=== PATIENT | female | born 1985 | race Asian ===

== ENCOUNTER 2018-01-06 16:28 | Inpatient (IN) | payer OTHER, MEDICAID ==
[~2018-01-06] VITALS: Ht 172.7 cm; Wt 51.7 kg
[2018-01-06 16:35] VITALS: BP 112/53
--- NOTE | 2018-01-06 16:35 | NUR ---
PT BROUGHT IN BY STAFF EDWARD SMITH FROM [facility] IN [place]. PT WAS BROUGHT IN FOR LETHARGY AND WEAKNESS. PT WAS PREVIOUSLY AT [facility] FOR HYPONATREMIA AND GT LEAKAGE. PT WAS PUT ON KEFLEX X 5 DAYS.( WHICH HAS BEEN COMPLETED) AND PT HAS BEEN HAVING LOOSE WATER AND FOUL SMELLING STOOLS. PT WAS FEBRILE AT 100.2 @1400 TODAY. AND WAS GIVEN IBUPROFEN AND TEMP DECREASED TO 98.0. PT IS ALERT BUT LETHARGIC, NON VERBAL, NON AMBULATORY, WHICH IS BASELINE PER CAREGIVER AT BEDSIDE. PT IS TACHYCARDIC 150's, SKIN IS WARM, DRY, PALE IN COLOR. RESP EVEN AND UNLABORED. PT HAS GTUBE ON THE LEFT SIDE OF PT ABDOMEN WHICH ACCORDING TO STAFF IS BEING USED FOR FEEDINGS. SHE ALSO HAS AN OLD JTUB SITE ON THE RIGHT SIDE OF ABDOMEN WHICH IS NOT BEING USED AT THIS TIME.(STAFF INFORMED THAT THE SITE IS NOT WORKING ). PT DID HAVE A LOOSE STOOL AT BEDSIDE AND WAS COLLECTED FOR A SAMPLE THE STOOL WAS WATERY WITH WHAT LOOKED LIKE MUCUS AND WITH MALODOUS ODOR.
--- NOTE | 2018-01-06 17:42 | NUR ---
G DRAWN. COPY OF RESULTS GIVEN TO DR. BELL. PLACED PT ON 2L NC PER PHYSICIAN.
[2018-01-06 18:05] LABS: HEMATOCRIT 41.3 % (36-48); HEMOGLOBIN 13.1 g/dL (12.0-16.0); MEAN CORPUSCULAR HEMOGLOBIN 30 pg (27-31); MEAN CORPUSCULAR HGB CONC 32 g/dL (33-37); PLATELET COUNT (AUTO) 426 K/uL (140-450); RED CELL DISTRIBUTION WIDTH 13.8 % (11.6-13.7); WHITE BLOOD COUNT (AUTO) 13.7 K/uL (4.8-10.8)
[2018-01-06] MEDS ORDERED: NACL 0.9% 1,000 ML IV ONE (18:05)
[2018-01-06 18:06] LABS: EOSINOPHILS % (MANUAL) 1 % (0-4); LYMPHOCYTES % (MANUAL) 17 % (20-46)
[2018-01-06] MEDS: NACL 0.9% 1,000 ML IV SCH ×2 (18:09→19:19)
[2018-01-06 18:22] LABS: ALBUMIN 3.5 g/dL (3.4-5.0); ANION GAP 23.8 (8-16); CREATININE 2.6 mg/dL (0.6-1.3); TOTAL BILIRUBIN 0.5 mg/dL (0.0-1.0)
[2018-01-06 18:27] LABS: POTASSIUM 4.8 mmol/L (3.5-5.1)
[2018-01-06 18:41] LABS: APPEARANCE,URINE SL CLOUDY (CLEAR); BILIRUBIN,URINE NEGATIVE (NEGATIVE); BLOOD, URINE NEGATIVE (NEGATIVE); COLOR,URINE YELLOW (YELLOW); LEUKOCYTE ESTERASE ,URINE NEGATIVE (NEGATIVE); NITRITE, URINE NEGATIVE (NEGATIVE); UGLUCOSE NEGATIVE (NEGATIVE)
[2018-01-06] MEDS ORDERED: PIPERACILLIN/TAZOBACTAM 3.375 GM in DEXTROSE 5% 50 ML IV ONE (18:45)
[2018-01-06 18:51] LABS: COARSE GRANULAR CASTS,URINE 0-10 /LPF (None Seen)
[2018-01-06 18:52] LABS: YEAST,URINE Few /HPF (None Seen)
[2018-01-06 18:53] LABS: CALCIUM OXALATE CRYSTALS,UR 0-10 /HPF (None Seen); RBC,URINE 0-5 (RARE) /HPF (0-5); WBC,URINE 0-5 (RARE) /HPF (0-5)
--- NOTE | 2018-01-06 19:00 | NUR ---
CRITICAL LACTIC ACID 4.5MD AWARE
[2018-01-06] MEDS ORDERED: PIPERACILLIN/TAZOBACTAM 3.375 GM VIAL IV ONE (19:02)
[2018-01-06 19:12] LABS: PROTHROMBIN TIME 11.2 secs (10.8-13.4)
--- NOTE | 2018-01-06 19:20 | NUR ---
REPORT GIVEN TO JYOTHI GARCIA RN
[2018-01-06 19:23] LABS: CKMB RELATIVE INDEX 0.1 (0.0-2.5); CREATINE KINASE MB 0.5 ng/mL (0-3.6)
[2018-01-06 20:00] VITALS: BP 121/75
--- NOTE | 2018-01-06 20:00 | NUR ---
Report given to and care transfered to Jero RN room ICU3. Transported via gurney with VSS for transfer.
--- NOTE | 2018-01-06 20:00 | NUR ---
PT TRANSFERRED FROM ER VIA [facility] WITH 2 ASSISTANTS. RECEIVED BEDSIDE REPORT FROM ER NURSE RN. PT'S CHIEF COMPLAIN GENERALIZED WEAKNESS WITH DIARRHEA X5 DAYS. DX WITH SEPTIC SHOCK. PT IS AWAKE, NON VERBAL, UNABLE TO MAKE NEEDS KNOWN, UNABLE TO FOLLOW COMMANDS. O2 2L/M VIA NC, 100% O2 SAT. ST ON THE MANAGER FLIGHT OPERATIONS. BILATERAL LUNG SOUND CLEAR, S1 AND S2 HEARD. G-TUBE TO LEFT UPPER ABDOMEN, J-TUBE ON RIGHT ABDOMEN, REDNESS TO TUBE SITE NOTED. PT HAD BOWEL MOVEMENT, LIGHT BROWN COLORED WATERY BM NOTED. REDNESS ON THE BUTTOCKS AREA NOTED. PERIPHERAL LINE TO RIGHT AC 22G, LEFT HAND 24G, INTACT AND PATENT NOTED. BED IN LOW POSITION, HOB ELEVATED 30 DEGREE. CALL LIGHT WITHIN REACH. WILL CONTINUE TO MONITOR.
[2018-01-06 22:00] VITALS: BP 117/67
--- NOTE | 2018-01-06 22:00 | NUR ---
2ND BOLUS 1000ML OF NS DONE. NO ACUTE DISTRESS NOTED. FLACC 0. ST ON THE MONITOR. HEART RATE ABOVE 100 NOTED. WILL CONTINUE TO MONITOR.
[2018-01-06] MEDS ORDERED: ONDANSETRON 4 MG/2 ML VIAL IVP PRN (22:50)
[2018-01-06] MEDS ORDERED: HYDROcodone/APAP 5/325 MG 1 TAB TAB GT PRN (22:50)
[2018-01-06] MEDS ORDERED: MORPHINE SULFATE 2 MG/ML SYR IVP PRN (22:50)
[2018-01-06] MEDS ORDERED: ACETAMINOPHEN 325 MG TAB GT PRN (22:50)
[2018-01-06] MEDS ORDERED: DEXT 5% /NACL 0.9% 1,000 ML IV SCH (22:50)
[2018-01-06] MEDS ORDERED: LORazepam 2 MG/ML VIAL IVP PRN (22:50)
[2018-01-07] VITALS (12 sets, daily range): BP systolic 91–130; BP diastolic 51–74
--- NOTE | 2018-01-07 | NUR ---
PT AWAKE, NON VERBAL, UNABLE TO MAKE NEEDS KNOWN, UNABLE TO FOLLOW COMMANDS. NO ACUTE DISTRESS NOTED. ST ON THE MONITOR. FLACC 0. VSS. CONTINUE TO MONITOR.
--- NOTE | 2018-01-07 02:00 | NUR ---
PT OPENS HER EYES, NON VERBAL, UNABLE TO MAKE NEEDS KNOWN, UNABLE TO FOLLOW COMMANDS. NO ACUTE DISTRESS NOTED. FLACC 0. ST ON THE MONITOR. PT HAD SMALL LIGHT BROWN COLORED WATERY BM NOTED. HOB ELEVATED, BED IN LOW POSITION. CALL LIGHT WITHIN REACH. WILL CONTINUE TO MONITOR.
[2018-01-07 02:19] LABS: CREATINE KINASE MB 1.1 ng/mL (0-3.6)
--- NOTE | 2018-01-07 03:30 | NUR ---
PT IS AWAKE, NON VERBAL, UNABLE TO FOLLOW COMMANDS. NO ACUTE DISTRESS NOTED. O2 SAT 100% ON ROOM AIR. ST ON THE MONITOR. WILL CONTINUE TO MONITOR.
[2018-01-07] MEDS ORDERED: PIPERACILLIN/TAZOBACTAM 2.25 GM VIAL IV ONE (04:51)
[2018-01-07] MEDS ORDERED: PIPERACILLIN/TAZOBACTAM 3.375 GM in DEXTROSE 5% 50 ML IV SCH (05:00)
[2018-01-07] MEDS: PIPER/TAZO 2.25GM/D5W PREMIX 50 ML IV SCH ×3 (05:15→21:05)
--- NOTE | 2018-01-07 05:15 | NUR ---
ADMINISTERED SCHEDULED ABX ORDERED, TOLERATED WELL. NO ACUTE DISTRESS NOTED AT THIS TIME. ST ON THE MONITOR. FLACC 0. WILL CONTINUE TO MONITOR.
[2018-01-07 05:19] LABS: BASOPHILS # (AUTO) 0.1 K/uL (0.00-0.22); EOSINOPHILS # (AUTO) 0.2 K/uL (0-0.4); EOSINOPHILS % (AUTO) 1.6 % (0.0-4.0); HEMATOCRIT 31.5 % (36-48); HEMOGLOBIN 10.2 g/dL (12.0-16.0); LYMPHOCYTES # (AUTO) 2.7 K/uL (2.5-16.5); LYMPHOCYTES % (AUTO) 22.8 % (20.5-51.1); MEAN CORPUSCULAR HEMOGLOBIN 31 pg (27-31); MEAN CORPUSCULAR HGB CONC 33 g/dL (33-37); MEAN CORPUSCULAR VOLUME 94.9 fL (80-94); MONOCYTES % (AUTO) 8.6 % (1.7-9.3); NEUTROPHILS # (AUTO) 7.9 K/uL (1.8-7.7); PLATELET COUNT (AUTO) 326 K/uL (140-450); RED BLOOD CELL COUNT(AUTO) 3.32 MIL/uL (4.20-5.40); RED CELL DISTRIBUTION WIDTH 14.1 % (11.6-13.7)
--- NOTE | 2018-01-07 06:45 | NUR ---
AT BEDSIDE AT THIS TIME TO CHECK THE PT. WILL FOLLOW THE ORDER.
[2018-01-07] MEDS ORDERED: NACL 0.45% 1,000 ML IV SCH (07:00)
--- NOTE | 2018-01-07 07:20 | NUR ---
BEDSIDE REPORT GIVEN TO JERI FOR CONTINUITY OF CARE.
--- NOTE | 2018-01-07 07:20 | NUR ---
RECEIVED BEDSIDE REPORT FROM NIGHT NURSE. PT IS AWAKE, NONVERBAL, UNABLE TO FOLLOW COMMANDS AND UNABLE TO MAKE NEEDS KNOWN. FLACC 0, AFEBRILE. SINUS TACHY ON MONITOR. S1 AND S2 HEARD. ON O2 AT 2LPM VIA NC. BILATERAL LUNGS SOUND CLEAR, BREATHING EVEN AND UNLABORED. PERIPHERAL IV TO RIGHT AC G 22 AND LEFT HAND 24G ASYMPTOMATIC, INTACT AND PATENT. G-TUBE TO LEFT UPPER QUADRANT AND J-TUBE TO RIGHT ABDOMEN NOTED. REDNESS AND MINIMAL AMOUNT DRAINAGE AT J-TUBE SITE NOTED. JOHNSON CATH IN PLACE DRAINING YELLOW URINE TO GRAVITY DRAINAGE BAG. SKIN IS DRY AND WARM TO TOUCH. HOB ELEVATED 30 DEGREES, BED IN LOWEST POSITION AND CALL LIGHT WITHIN REACH. WILL CONTINUE TO MONITOR.
[2018-01-07 07:37] LABS: ALBUMIN 2.6 g/dL (3.4-5.0); ANION GAP 19.2 (8-16); CARBON DIOXIDE 15.5 mmol/L (21-32); CREATININE 1.3 mg/dL (0.6-1.3); MAGNESIUM 2.4 mg/dL (1.8-2.4); PHOSPHORUS 3.5 mg/dL (2.5-4.9); TOTAL BILIRUBIN 0.3 mg/dL (0.0-1.0)
[2018-01-07 08:19] LABS: POTASSIUM 2.7 mmol/L (3.5-5.1)
--- NOTE | 2018-01-07 08:20 | NUR ---
PAGED DR. EVIN Cifuentes FOR CRITICAL LAB RESULTS. AWAITING CALL BACK.
--- NOTE | 2018-01-07 08:28 | NUR ---
RECEIVED A RETURNED CALL FROM DR. EVIN Cifuentes ORDERS RECEIVED.
[2018-01-07] MEDS ORDERED: INSULIN LISPRO SLIDING SCALE 100 UNITS/ML VIAL SUBQ PRN (08:30)
[2018-01-07] MEDS ORDERED: KCL 20 MEQ/WATER INJ PREMIX 200 ML IV SCH (08:40)
[2018-01-07] MEDS ORDERED: SODIUM BICARBONATE 8.4% 50 MEQ in NACL 0.45% 1,000 ML IV SCH (09:35)
--- NOTE | 2018-01-07 10:25 | NUR ---
PATIENT HAS BEEN SCREENED AND CATEGORIZED HIGH NUTRITION RISK. PATIENT WILL BE SEEN WITHIN 1-2 DAYS OF ADMISSION. 01/07/18 - 01/08/[address]
--- NOTE | 2018-01-07 10:30 | NUR ---
NO CHANGE OF CONDITION AT THIS TIME. VITAL SIGNS STABLE. AFEBRILE.
[2018-01-07] MEDS: NACL 0.45% 1,000 ML IV SCH ×2 (11:24→21:04)
[2018-01-07 11:28] LABS: CREATINE KINASE MB 4.4 ng/mL (0-3.6)
[2018-01-07] MEDS: BLOOD GLUCOSE MONITORING 1 DEV DEV FS SCH ×3 (11:39→21:04)
--- NOTE | 2018-01-07 12:49 | NUR ---
PT IS SLEEPING COMFORTABLY. NO S/SX OF ACUTE DISTRESS NOTED AT THIS TIME. SAFETY PRECAUTIONS IN PLACE.
[2018-01-07] MEDS ORDERED: PROBIOTIC SCREEN 1 EA MISC MC PRN (15:25)
--- NOTE | 2018-01-07 15:25 | NUR ---
NO CHANGE OF CONDITION AT THIS TIME. CLEANED AND REPOSITIONED PT. TOLERATED WELL. VITAL SIGNS STABLE. SAFETY MEASURES ENSURED. WILL CONTINUE TO MONITOR.
--- NOTE | 2018-01-07 15:39 | NUR ---
01/07/18 RD INITIAL ASSESSMENT COMPLETED PLEASE REFER TO NUTRITION ASSESSMENT UNDER CARE ACTIVITY FOR ESTIMATED NUTRITIONAL NEEDS. 1.RECOMMEND DIABETISOURCE AT 60 ML/HR TOLERATED -THIS WILL PROVIDE PT WITH 1728 KCAL/DAY, 86 GM PROTEIN AND 1148 ML OF FREE WATER, WHICH WILL MEET 100% OF PATIENTS ENERGY AND PROTEIN NEEDS. 2. RD TO FOLLOW-UP 2-3 DAYS, HIGH RISK ORACIO MALDONADO, RD
--- NOTE | 2018-01-07 16:30 | NUR ---
DR. EVIN Cifuentes MADE AWARE OF STOOL FOR C. DIFF RESULT. NO NEW ORDER AT THIS TIME. DR. CLEARY ALSO MADE AWARE OF FNS RECOMMENDATION FOR TUBE FEEDING. OK TO START TUBE FEEDING RD RECOMMENDATION PER DR. CLEARY.
--- NOTE | 2018-01-07 18:10 | NUR ---
PER DR. CLEARY, DO NOT START TUBE FEEDING YET DUE TO RIGHT-SIDED BOWEL ISCHEMIA.
--- NOTE | 2018-01-07 18:10 | NUR ---
DR. EVIN Cifuentes MADE AWARE OF ABNORMAL CT ABDOMEN/ PELVIS RESULT. ORDER RECEIVED.
--- NOTE | 2018-01-07 18:45 | NUR ---
SPOKE WITH DR. BRAUN REGARDING CONSULTATION ORDER. PER DR. BRAUN HE WILL BE OUT OF TOWN UNTIL FRIDAY. DR. EVIN Cifuentes MADE AWARE.
--- NOTE | 2018-01-07 19:25 | NUR ---
PT SEEN AND EXAMINED BY DR. EVIN Cifuentes WILL FOLLOW UP ON ORDERS.
--- NOTE | 2018-01-07 19:26 | NUR ---
RECEIVED PT FROM AM SHIFT, PT OPEN HER EYES, NON VERBAL NOT FOLLOW COMMANDS. PT HX DOWN SYNDROME. PT ON ROOM AIR WITH SPO2 97-100%, HOB UP 30-45 DEGREES. ALTAF LUNGS SOUND CLEAR. ST ON MONITOR. IV NO 22 TO R AC IS OCCLUDED AND PUFFY. REMOVE THE LINE. PLACE THE IV TO LEFT WRIST. LEFT WRIST IV LINE NO 26 GAUGE INTACT WELL. JT TO RUQ ABD AND GT TO LUQ. JT SITE REDNESS. NO RESIDUAL FROM BOTH SITE.PER REPORT TO USE JT SITE FOR MEDS OR ANY FEEDING. GT SITE NOT BEEN USING FOR AWHILE PER [facility] REPORT. AINSLEY AND LOWER ABD DISCOLORATIONS . ABD SOFT NON DISTENDED. F/C IN PLACE WITH YELLOW CLEAR URINE. PT IS CONTACT ISOLATION FOR C.DIFF. GENTLE CARE GIVEN. KEPT CLEAN AND DRY.
--- NOTE | 2018-01-07 19:30 | NUR ---
DR.PALIWAL WILLSON COME TO SEE PT,NEW ORDER CONSULT TO .
--- NOTE | 2018-01-07 19:30 | NUR ---
REPORT GIVEN TO NIGHT NURSE FOR CONTINUITY OF CARE. PT IS IN STABLE CONDITION.
--- NOTE | 2018-01-07 20:15 | NUR ---
PT HAS LARGE GREENISH LIQUIDS BM.GOOD PERIANAL/JIN CARE GIVEN. KEPT CLEAN AND DRY.
[2018-01-07] MEDS: SODIUM BICARBONATE 650 MG TAB PO SCH (21:00)
[2018-01-07] MEDS: metroNIDAZOLE 500 MG/NS PREMIX 100 ML IV SCH (21:06)
--- NOTE | 2018-01-07 21:40 | NUR ---
COME TO SEE PT, PER MD NPO EXCEPT MEDS. CONTINUE ALL ABTS ORDER.
--- NOTE | 2018-01-07 22:30 | NUR ---
CALL UPDATE PT STATUS, PER MD WILL COME TO SEE PT
--- NOTE | 2018-01-07 23:20 | NUR ---
OH COME TO SEE PT NEW ORDER LACTIC ACID SEPSIS PROTOCOL
[2018-01-08] VITALS (11 sets, daily range): BP systolic 99–125; BP diastolic 53–90
[2018-01-08] MEDS: VANCOMYCIN 1,000 MG VIAL GT SCH ×5 (00:46→23:56)
--- NOTE | 2018-01-08 00:54 | NUR ---
VANCOMYCIN FOR C.DIFF GIVEN VIA JT TOLERATING WELL.
--- NOTE | 2018-01-08 02:00 | NUR ---
PT SLEEP EASY TO AWAKE. NO S/S OF RESP DISTRESS,NO SOB. NO S/S OF PAIN. NO SEIZURE NOTED.
--- NOTE | 2018-01-08 04:10 | NUR ---
NO FEVER AT THIS TIME T 99.1.
[2018-01-08] MEDS: PIPER/TAZO 2.25GM/D5W PREMIX 50 ML IV SCH (04:13)
[2018-01-08] MEDS: metroNIDAZOLE 500 MG/NS PREMIX 100 ML IV SCH ×3 (04:14→20:14)
--- NOTE | 2018-01-08 05:21 | NUR ---
AM IV ABT S GIVEN VIANEY WELL.AM CARE GIVEN,SPONGE BATHS,MOUTH CARE AND F/C CARE GIVEN. KEPT CLEAN AND DRY.
[2018-01-08] MEDS: NACL 0.45% 1,000 ML IV SCH (06:04)
[2018-01-08 06:25] LABS: BASOPHILS # (AUTO) 0.1 K/uL (0.00-0.22); BASOPHILS % (AUTO) 0.9 % (0.0-2.0); EOSINOPHILS # (AUTO) 0.6 K/uL (0-0.4); EOSINOPHILS % (AUTO) 5.9 % (0.0-4.0); HEMATOCRIT 28.7 % (36-48); HEMOGLOBIN 9.3 g/dL (12.0-16.0); LYMPHOCYTES # (AUTO) 2.6 K/uL (2.5-16.5); LYMPHOCYTES % (AUTO) 25.5 % (20.5-51.1); MEAN CORPUSCULAR HEMOGLOBIN 31 pg (27-31); MEAN CORPUSCULAR HGB CONC 33 g/dL (33-37); MEAN CORPUSCULAR VOLUME 95.4 fL (80-94); MONOCYTES # (AUTO) 0.6 K/uL (0.8-1.0); MONOCYTES % (AUTO) 6.2 % (1.7-9.3); NEUTROPHILS # (AUTO) 6.3 K/uL (1.8-7.7); NEUTROPHILS % (AUTO) 61.5 % (42.2-75.2); PLATELET COUNT (AUTO) 261 K/uL (140-450); RED CELL DISTRIBUTION WIDTH 14.7 % (11.6-13.7); WHITE BLOOD COUNT (AUTO) 10.3 K/uL (4.8-10.8)
[2018-01-08] MEDS: BLOOD GLUCOSE MONITORING 1 DEV DEV FS SCH ×4 (07:02→20:14)
--- NOTE | 2018-01-08 07:02 | NUR ---
RECEIVED REPORT AT BEDSIDE FROM MECHANICAL PROCESS ENGINEER RN, DISHA, FOR CONTINUITY OF CARE. PATIENT IS AWAKE, UNABLE TO MAKE NEEDS KNOWN AND CANNOT FOLLOW SIMPLE COMMANDS DUE TO MEDICAL HX. SKIN IS INTACT, PERIPHERAL IV SITE TO LEFT WRIST. PATIENT IS ON ROOM AIR, RESPIRATIONS ARE UNLABORED AND SYMMETRICAL. ST ON MONITOR. SHE HAS A GTUBE AND JTUBE WITH SLIGHT REDNESS TO THE SITE. PATIENT HAS A JOHNSON CATHETER IN PLACE. HOB IS 30 DEGREES IN LOWEST POSITION. NO SIGNS OF ACUTE DISTRESS NOTED. WILL CONTINUE TO MONITOR CLOSELY.
[2018-01-08 07:14] LABS: ALBUMIN 2.6 g/dL (3.4-5.0); ANION GAP 18.7 (8-16); CARBON DIOXIDE 17.4 mmol/L (21-32); CREATININE 1.1 mg/dL (0.6-1.3); MAGNESIUM 1.9 mg/dL (1.8-2.4); PHOSPHORUS 2.3 mg/dL (2.5-4.9); POTASSIUM 3.1 mmol/L (3.5-5.1); TOTAL BILIRUBIN 0.5 mg/dL (0.0-1.0)
--- NOTE | 2018-01-08 07:16 | NUR ---
COME TO SEE PT. REPORT GIVEN TO KATT ASCENCIO MORNING SHIFT.PT IS AWAKE NO DISTRESS NOTED.
[2018-01-08] MEDS ORDERED: KCL 20 MEQ/WATER INJ PREMIX 200 ML IV SCH (08:47)
--- NOTE | 2018-01-08 09:15 | NUR ---
DR. SANABRIA IN TO SEE PATIENT, UPDATED ON PATIENT'S CONDITION. WILL FOLLOW UP ON ANY ORDERS.
[2018-01-08] MEDS ORDERED: POTASSIUM CHLORIDE 20% 40 MEQ/15 ML UDC GT SCH (09:27)
--- NOTE | 2018-01-08 09:40 | NUR ---
PATIENT'S PERIPHERAL IV SITE INFILTRATED, CHANGED SITE TO LEFT HAND, 24 GAUGE.
--- NOTE | 2018-01-08 10:00 | NUR ---
Social Workers notes: I attempted to contact Patient's [facility] case packer and sealer Reny Martinez at to provide Patient's status, gather and confirm patient's information. NO response; voicemail stated that Graphic Design Professor will be out of the office from 01/07/18 - 01/12/18. These Metal Fitter left her a MGS, contact number and a request call when available.
[2018-01-08] MEDS: SODIUM BICARBONATE 650 MG TAB PO SCH (10:03)
[2018-01-08] MEDS: LACTOBACILLUS RHAMNOSUS GG 1 EACH CAP PO SCH (10:04)
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
--- NOTE | 2018-01-08 10:30 | NUR ---
Call Taker Notes: These fha underwriter contacted Patient's facility [facility] at and spoke to MANAGER RETAIL/Caregiver Candace. Per Candace Patient has been residing in the facility for many years, confirmed no family involvement and Patient receiving services from [facility]/Rubber Goods Finisher Chayito Bal . Per facility Staff Candace, Patient is under the care of Dr. Rebel Kumar who visits patient in the facility as needed but usually once a month last appointment with MD was 12/23/17. Per Facility Staff Patient has no issues getting or taking medications, the facility do all patient's medication management and feedings. Patient Has a wheelchair only as her special equipment and Patient is not conserved. Per Staff patient is to return to the facility when she is ready for discharge from [facility]. Per Facility Staff Candace when patient is ready for discharge the facility RN Alma Barber at is to be contact to coordinate transportation and scheduled belt picker time for Patient get back to the facility. These fha underwriter thank Candace for all her information and ended the call.
[2018-01-08] MEDS: PHARMACY COMMENTS MC SCH ×3 (12:50→23:56)
--- NOTE | 2018-01-08 13:05 | NUR ---
DR. PULIDO HERE TO SEE AND EXAMINE PT. TOOK RT SIDE J TUBE OUT. WITH MOD AMT YELLOWISH DRDee SITE CLEANSED WITH NS. COVERED WITH DRAINAGE BAG. PLANS TO REPLACE J TUBE TOMORROW.
--- NOTE | 2018-01-08 13:58 | NUR ---
AT BEDSIDE TO SEE AND EXAMINE PATIENT, UPDATED ON PATIENT'S CONDITION. WILL FOLLOW UP ON ANY ORDERS.
[2018-01-08] MEDS: POTASSIUM CHL 20 MEQ / DEXT 5% 1,000 ML IV SCH ×2 (14:42→23:55)
--- NOTE | 2018-01-08 14:50 | NUR ---
PT'S OWN WHEELCHAIR GIVEN TO SNF MENTAL HEALTH AIDE BY SECURITY.
--- NOTE | 2018-01-08 14:52 | NUR ---
CM NOTE INITIAL REVIEW DONE.
--- NOTE | 2018-01-08 15:46 | NUR ---
CHANGE AND REPOSITION PATIENT, PROVIDED ORAL CARE. PATIENT TOLERATED WELL.
[2018-01-08] MEDS ORDERED: MUPIROCIN 2% OINT 22 GM TUBE TP SCH (17:00)
[2018-01-08] MEDS ORDERED: CHLORHEXADINE GLUC 2% CLOTH TP SCH (17:00)
--- NOTE | 2018-01-08 17:07 | NUR ---
CHANGED AND REPOSITIONED PATIENT, PROVIDED JOHNSON CARE, CLEANED PATIENT WITH CHLORHEXIDINE WIPES AND CHANGED GOWN. PATIENT TOLERATED WELL, NO SIGNS OF DISTRESS NOTED.
--- NOTE | 2018-01-08 19:30 | NUR ---
RECEIVED REPORT FROM STEPHEN ASCENCIO AM SHIFT. PT IS AWAKE,NON VERBAL, NO S/S OF ANY DISTRESS,NO SOB AT THIS TIME. HOB UP 30-45 DEGREES. PT ON ROOM AIR.TOLERATING WELL. SPO2 97%. ALTAF LUNGS SOUND CLEAR. SR ON MONITOR. PERIPHERAL IV LINE TO RIGHT HAND NO 24 INTACT WELL. IV DEX 5 % WITH KCL AT 100 CC/HR.GT TO LUQ. NO RESIDUAL. PER REPORT PER DR. PULIDO MAY USE GT SITE FOR MEDS AND H2O FLUSH. JT TO RUQ REMOVE BY PER REPORT. KELLI CHILDRESS WILL RE INSERT NEW ONE IN AM.PLACE DRAINAGE BAG TO RUQ POST JT SITE. YELLOWISH MODERATE DRAINAGE NOTED ON THE BAG.DISCOLORATION TO AINSLEY AND LOWER ABD. PT CONT ON CONTACT PRECAUTION FOR POSITIVE C.DIFF AND POSITIVE MRSA NARES. TX ORDERED. F/C IN PLACE WITH YELLOW CLOUDY URINE.GENTLE CARE GIVEN. KEPT CLEAN AND DRY.
--- NOTE | 2018-01-08 21:00 | NUR ---
IV ABT FLAGYL GIVEN ORDER. BLOOD SUGAR 125, NO COVERAGE NEEDED. PT WATCHING TV.
--- NOTE | 2018-01-08 21:45 | NUR ---
COME TO SEE PT. UP DATE PT INFORMATION TO . PER CONT VANCOMYCIN AND PATEL BONNER.
[2018-01-09] VITALS: BP 142/65
--- NOTE | 2018-01-09 00:30 | NUR ---
VANCOMYCIN AND H20 FLUSH GIVEN. PT HAS 50CC RESIDUAL FROM GT SITE.KEPT CLEAN AND DRY.
--- NOTE | 2018-01-09 01:34 | NUR ---
PT HAS X 1 LARGE LIQUIDS GREENISH BM. GOOD JIN ANAL/JIN CARE GIVEN. KEPT CLEAN AND DRY.
--- NOTE | 2018-01-09 02:30 | NUR ---
PT SLEEPING WELL, NO DISTRESS NOTED.
[2018-01-09 04:00] VITALS: BP 124/64
[2018-01-09] MEDS: VANCOMYCIN 1,000 MG VIAL GT SCH ×3 (05:07→17:41)
[2018-01-09] MEDS: metroNIDAZOLE 500 MG/NS PREMIX 100 ML IV SCH ×3 (05:07→21:11)
[2018-01-09] MEDS: PHARMACY COMMENTS MC SCH ×3 (05:08→18:57)
--- NOTE | 2018-01-09 05:20 | NUR ---
AM MEDS GIVEN TOLERATED WELL,WATER FLUSH GIVEN ORDER.NO RESIDUAL FROM GT SITE.
--- NOTE | 2018-01-09 06:11 | NUR ---
AM CARE GIVEN , SPONGE BATH,ORAL CARE AND F/C CARE. GENTLE CARE GIVEN .KEPT CLEAN AND DRY.
[2018-01-09 06:16] LABS: BASOPHILS # (AUTO) 0.1 K/uL (0.00-0.22); BASOPHILS % (AUTO) 1.2 % (0.0-2.0); EOSINOPHILS # (AUTO) 0.4 K/uL (0-0.4); EOSINOPHILS % (AUTO) 5.4 % (0.0-4.0); HEMATOCRIT 26.9 % (36-48); LYMPHOCYTES # (AUTO) 2.2 K/uL (2.5-16.5); LYMPHOCYTES % (AUTO) 28.1 % (20.5-51.1); MEAN CORPUSCULAR HEMOGLOBIN 31 pg (27-31); MEAN CORPUSCULAR HGB CONC 34 g/dL (33-37); MEAN CORPUSCULAR VOLUME 93.7 fL (80-94); MONOCYTES # (AUTO) 0.6 K/uL (0.8-1.0); MONOCYTES % (AUTO) 7.3 % (1.7-9.3); NEUTROPHILS # (AUTO) 4.6 K/uL (1.8-7.7); PLATELET COUNT (AUTO) 232 K/uL (140-450); RED BLOOD CELL COUNT(AUTO) 2.87 MIL/uL (4.20-5.40); RED CELL DISTRIBUTION WIDTH 14.4 % (11.6-13.7); WHITE BLOOD COUNT (AUTO) 7.9 K/uL (4.8-10.8)
[2018-01-09] MEDS: BLOOD GLUCOSE MONITORING 1 DEV DEV FS SCH ×4 (06:36→21:10)
[2018-01-09 06:39] LABS: ALBUMIN 2.5 g/dL (3.4-5.0); ANION GAP 14.5 (8-16); CARBON DIOXIDE 20.2 mmol/L (21-32); CREATININE 0.6 mg/dL (0.6-1.3); MAGNESIUM 1.5 mg/dL (1.8-2.4); PHOSPHORUS 2.1 mg/dL (2.5-4.9); POTASSIUM 3.7 mmol/L (3.5-5.1); TOTAL BILIRUBIN 0.3 mg/dL (0.0-1.0)
--- NOTE | 2018-01-09 07:20 | NUR ---
PT TRANSFER TO TELE,REPORT GIVEN ALBERTINA ASCENCIO AM SHIFT. PT STABLE AT THIS TIME.
--- NOTE | 2018-01-09 07:20 | NUR ---
RECEIVED REPORT FROM ICU NURSE AT BEDSIDE. PATIENT PRESENTS WITH SHIVERING AT THIS TIME. PATIENT HAS AN IV NOTED ON HER LEFT HAND 24 G. PATIENT HAS A G-TUBE, JOHNSON CATHETER, AND A J-TUBE DRAINING GREENISH LIQUID. PATIENT A&OX0. PATIENT HAS SEQUENTIALS ON BOTH LEGS AT THIS TIME. PATIENT CAME WITH KCL D5 RUNNING AT 100ML/HR. TURNED PATIENT ONTO RIGHT LATERAL SIDE. APPLIED SEIZURE PADS TO PATIENT'S BED. PUT BED IN LOWEST SETTING. CALL LIGHT WITHIN REACH OF PATIENT. APPROPRIATE SIGNS PLACED OUTSIDE OF PATIENT'S ROOM. WILL CONTINUE TO MONITOR PATIENT.
[2018-01-09] MEDS: CHLORHEXADINE GLUC 2% CLOTH TP SCH (07:41)
[2018-01-09 08:00] VITALS: BP 100/67
--- NOTE | 2018-01-09 08:50 | NUR ---
PATIENT ASLEEP AT THIS TIME. FLACC SCORE 0. NO SIGNS OF RESPIRATORY DISTRESS OR RESPIRATORY DEPRESSION. WILL CONTINUE TO MONITOR PATIENT.
[2018-01-09] MEDS: POTASSIUM CHL 20 MEQ / DEXT 5% 1,000 ML IV SCH (09:30)
[2018-01-09] MEDS: LACTOBACILLUS RHAMNOSUS GG 1 EACH CAP PO SCH (10:05)
--- NOTE | 2018-01-09 10:05 | NUR ---
CULTURELLE GIVEN TO PATIENT VIA G-TUBE. PATIENT TOLERATED WELL.
[2018-01-09] MEDS ORDERED: MAG SULF 2000 MG/WATER PREMIX 50 ML IV SCH (10:30)
[2018-01-09 12:19] VITALS: BP 133/83
--- NOTE | 2018-01-09 12:29 | NUR ---
GAVE PATIENT 20 ML VANCOMYCIN VIA G-TUBE. PATIENT TOLERATED WELL.
[2018-01-09] MEDS ORDERED: POTASSIUM PHOSPHATE 15 MM in NACL 0.9% 250 ML IV SCH (13:00)
--- NOTE | 2018-01-09 14:12 | NUR ---
PATIENT RESTING IN BED. FLACC SCORE 0. PATIENT SHOWS NO SIGNS OF RESPIRATORY DISTRESS OR RESPIRATORY DEPRESSION. WILL CONTINUE TO MONITOR PATIENT.
--- NOTE | 2018-01-09 14:21 | NUR ---
01/09/18 RD FOLLOW UP COMPLETED PLEASE REFER TO NUTRITION ASSESSMENT UNDER CARE ACTIVITY FOR ESTIMATED NUTRITIONAL NEEDS. 1. CONTINUE NPO MEDICALLY APPROPRIATE. 2. ADVANCE TO NUTRITION SUPPORT WHEN MEDICALLY APPROPRIATE: DIABETISOURCE @ 60 ML/HR. -THIS WILL PROVIDE PT WITH 1728 KCAL/DAY, 86 GM PROTEIN AND 1148 ML OF FREE WATER, TO MEET 100% OF PTS ESTIMATED ENERGY AND PROTEIN NEEDS. 3. RD TO FOLLOW-UP 3-5 DAYS, MODERATE RISK ORACIO MALDONADO RD
[2018-01-09 16:00] VITALS: BP 105/69
--- NOTE | 2018-01-09 16:00 | NUR ---
PATIENT ASLEEP AT THIS TIME. FLACC SCORE 0. NO RESPIRATORY DISTRESS OR RESPIRATORY DEPRESSION. WILL CONTINUE TO MONITOR PATIENT.
[2018-01-09] MEDS: MUPIROCIN 2% OINT 22 GM TUBE TP SCH (17:00)
[2018-01-09] MEDS ORDERED: POTASSIUM CHLORIDE 20% 40 MEQ/15 ML UDC GT SCH (17:15)
--- NOTE | 2018-01-09 19:25 | NUR ---
GAVE REPORT TO NIGHTSHIFT NURSE. PATIENT IN STABLE CONDITION.
--- NOTE | 2018-01-09 19:26 | NUR ---
RECEIVED REPORT FROM DAY SHIFT RN, PT IS NONVERBAL, ON ROOM AIR. 24G IV TO LEFT HAND. SKIN IS INTACT, BUT THERE IS ERYTHEMA TO ABDOMEN. UPDATED BOARD. VITAL SIGNS WITHIN NORMAL LIMITS. PT IN STABLE CONDITION, NO SIGNS OF DISTRESS NOTED. BED IN LOWEST POSITION, CALL LIGHT WITHIN REACH. WILL CONTINUE TO MONITOR.
--- NOTE | 2018-01-09 19:42 | NUR ---
SPOKE WITH DR Michel PULIDO NOTIFIED J-TUBE CONNECTOR WASN'T AVAILABLE NEW ORDER START FEEDING WITH G-TUBE AT THE RATE OF 20ML AND DR Michel PULIDO WILL SEE PATIENT TOMORROW
[2018-01-09 20:00] VITALS: BP 108/71
--- NOTE | 2018-01-09 21:15 | NUR ---
FLAGYL NOW INFUSING AT 100ML/HR.
[2018-01-10] VITALS: BP 108/66
[2018-01-10] MEDS ORDERED: MORPHINE SULFATE 4 MG/ML SYR ONE (00:44)
[2018-01-10] MEDS: VANCOMYCIN 1,000 MG VIAL GT SCH ×4 (00:46→17:13)
[2018-01-10] MEDS: PHARMACY COMMENTS MC SCH ×4 (00:46→17:13)
--- NOTE | 2018-01-10 00:46 | NUR ---
ADMINISTERED ATIVAN BECAUSE PT IS VERY AGITATED AND BLOOD PRESSURE COMING OUT 184/155.
--- NOTE | 2018-01-10 01:00 | NUR ---
TOOK BP AGAIN AND IT IS NOW WNL.
--- NOTE | 2018-01-10 03:15 | NUR ---
FLACC 8, ADMINISTERED MORPHINE PER ORDER, PT TOLERATED WELL.
[2018-01-10 04:00] VITALS: BP 91/68
--- NOTE | 2018-01-10 04:00 | NUR ---
VITAL SIGNS WITHIN NORMAL LIMITS. PT IN STABLE CONDITION, NO SIGNS OF DISTRESS NOTED. BED IN LOWEST POSITION, CALL LIGHT WITHIN REACH. WILL CONTINUE TO MONITOR.
[2018-01-10] MEDS: metroNIDAZOLE 500 MG/NS PREMIX 100 ML IV SCH ×2 (05:32→12:11)
[2018-01-10] MEDS: BLOOD GLUCOSE MONITORING 1 DEV DEV FS SCH ×4 (06:45→20:49)
--- NOTE | 2018-01-10 06:51 | NUR ---
PT IN STABLE CONDITION, NO SIGNS OF DISTRESS NOTED. BED IN LOWEST POSITION, CALL LIGHT WITHIN REACH. WILL CONTINUE TO MONITOR.
--- NOTE | 2018-01-10 07:32 | NUR ---
ENDORSED PT TO DAY SHIFT RN FOR CONTINUITY OF CARE. PT IN STABLE CONDITION.
--- NOTE | 2018-01-10 07:33 | NUR ---
RECEIVED REPORT FROM MANAGER TRACK NURSE. PATIENT LYING DOWN IN BED COMFORTABLY. NO DISTRESS NOTED. FLACC 0. RESPIRATIONS EVEN, UNLABORED, ON ROOM AIR. AAOX1, APHASIC, CALM, COOPERATIVE, SKIN COLOR APPROPRIATE TO ETHNICITY, WARM TO TOUCH. SKIN IS INTACT. GTUBE SITE IN PLACE, LOOSE CONNECTION ON CLAUDIA VALVE CONNECTING TO GTUBE NOTED. GTUBE FEEDING WITH DIABETISOURCE AC INFUSING PER ORDERS. JTUBE SITE BALLOON IN PLACE, BUT IS LACKING CONNECTOR TUBE. ABDOMEN SOFT, NON-TENDER. LUNGS CTA ON ALL LOBES. IV SITE INTACT, PATENT, ON SALINE LOCK. REVIEWED PLAN OF CARE WITH PATIENT. PATIENT UNABLE TO UNDERSTAND. SAFETY MEASURES IN PLACE, CALL LIGHT WITHIN REACH, FALL PREVENTIONS IN PLACE, SEIZURE PRECAUTIONS IN PLACE. WILL CONTINUE TO MONITOR.
[2018-01-10 08:00] VITALS: BP 95/75
[2018-01-10] MEDS: CHLORHEXADINE GLUC 2% CLOTH TP SCH (08:28)
[2018-01-10] MEDS ORDERED: POTASSIUM CHLORIDE 20% 40 MEQ/15 ML UDC GT SCH (09:00)
[2018-01-10 09:20] LABS: ANION GAP 15.1 (8-16); CARBON DIOXIDE 23.4 mmol/L (21-32); CREATININE 0.7 mg/dL (0.6-1.3); POTASSIUM 3.5 mmol/L (3.5-5.1)
[2018-01-10] MEDS: LACTOBACILLUS RHAMNOSUS GG 1 EACH CAP PO SCH (09:41)
[2018-01-10 09:43] LABS: BASOPHILS % (AUTO) 0.6 % (0.0-2.0); EOSINOPHILS # (AUTO) 0.2 K/uL (0-0.4); EOSINOPHILS % (AUTO) 2.8 % (0.0-4.0); HEMOGLOBIN 9.7 g/dL (12.0-16.0); LYMPHOCYTES # (AUTO) 2.3 K/uL (2.5-16.5); LYMPHOCYTES % (AUTO) 28.2 % (20.5-51.1); MEAN CORPUSCULAR HEMOGLOBIN 31 pg (27-31); MEAN CORPUSCULAR HGB CONC 34 g/dL (33-37); MEAN CORPUSCULAR VOLUME 92.3 fL (80-94); MONOCYTES # (AUTO) 0.6 K/uL (0.8-1.0); MONOCYTES % (AUTO) 7.9 % (1.7-9.3); NEUTROPHILS # (AUTO) 4.8 K/uL (1.8-7.7); NEUTROPHILS % (AUTO) 60.5 % (42.2-75.2); PLATELET COUNT (AUTO) 231 K/uL (140-450); RED BLOOD CELL COUNT(AUTO) 3.14 MIL/uL (4.20-5.40); RED CELL DISTRIBUTION WIDTH 13.8 % (11.6-13.7)
[2018-01-10 09:58] LABS: MAGNESIUM 2.1 mg/dL (1.8-2.4); PHOSPHORUS 2.4 mg/dL (2.5-4.9)
--- NOTE | 2018-01-10 10:00 | NUR ---
DR. PULIDO AT BEDSIDE REVIEWING PLAN OF CARE WITH PATIENT. WILL CONTINUE TO MONITOR.
--- NOTE | 2018-01-10 10:51 | NUR ---
ASSISTED MAIL LIST LIBRARIAN IN REPOSITIONING AND CLEANING PATIENT. GTUBE FEEDING INCREASED TO 30ML/HR PER DR. PULIDO ORDERS. SAFETY MEASURES IN PLACE, CALL LIGHT WITHIN REACH. WILL CONTINUE TO MONITOR.
[2018-01-10] MEDS ORDERED: ACET-1182 GT (11:34)
[2018-01-10] MEDS ORDERED: ACET-9525 GT (11:34)
[2018-01-10] MEDS ORDERED: LACT10CA PO (11:34)
[2018-01-10] MEDS ORDERED: CHLO118S2 TP (11:34)
[2018-01-10] MEDS ORDERED: VAN1I GT (11:34)
[2018-01-10] MEDS ORDERED: BACTO TP (11:34)
[2018-01-10] MEDS ORDERED: POTA40SO5 GT (11:34)
[2018-01-10 12:00] VITALS: BP 108/81
--- NOTE | 2018-01-10 13:05 | NUR ---
PATIENT LYING DOWN IN BED. NO DISTRESS NOTED. FLACC 0. NO SEIZURES NOTED. JTUBE FEEDING IN PLACE PER MD ORDERS. PATIENT TOLERATING FEEDING WELL. SCHEDULED MEDICATIONS DUE GIVEN. SAFETY MEASURES IN PLACE, CALL LIGHT WITHIN REACH. WILL CONTINUE TO MONITOR.
--- NOTE | 2018-01-10 13:42 | NUR ---
CALLED PATIENT'S RN, ZARA, AT [facility]. NOTIFIED ZARA THAT PATIENT WAS TO BE DISCHARGED BACK TO THE FACILITY TODAY. ZARA VERBALIZED UNDERSTANDING AND SAID SHE HAD TO CALL HER FACILITY TRANSPORTATION TO SETUP THE TRANSPORTATION FOR PATIENT TO TAKE HER BACK TO [facility]. RN ZARA TO CALL [facility] BACK WHEN SHE HAS ARRANGED FOR TRANSPORTATION LATER TODAY. ALSO GAVE REPORT TO SILVA ZUÑIGA AND ANSWERED ALL HER QUESTIONS REGARDING AL'S HOSPITALIZATION. REVIEWED NEW MEDICATION REGIMEN WITH ZARA AND ZARA VERBALIZED COMPLETE UNDERSTANDING. AWAITING FOR ZARA'S CALL FOR TRANSPORTATION. WILL CONTINUE TO MONITOR.
--- NOTE | 2018-01-10 15:18 | NUR ---
ASSISTED SUPERVISOR SEWING ROOM IN CLEANING AND REPOSITIONING PATIENT. PATIENT HAS A SMALL BM, WATERY. WILL CONTINUE TO MONITOR.
[2018-01-10 16:00] VITALS: BP 153/61
[2018-01-10] MEDS: MUPIROCIN 2% OINT 22 GM TUBE TP SCH (17:12)
--- NOTE | 2018-01-10 17:21 | NUR ---
PATIENT LYING DOWN IN BED COMFORTABLY. NO DISTRESS NOTED. FLACC 0. SCHEDULED MEDICATIONS DUE GIVEN. SAFETY MEASURES IN PLACE, CALL LIGHT WITHIN REACH. WILL CONTINUE TO MONITOR.
--- NOTE | 2018-01-10 19:30 | NUR ---
GAVE REPORT TO ICE BAG ASSEMBLER NURSE FOR CONTINUITY OF CARE. PATIENT IN STABLE CONDITION.
--- NOTE | 2018-01-10 21:50 | NUR ---
[facility] CAME TO SUPERVISOR PIGMENT MAKING THE PATIENT. REMOVED IV AND JOHNSON CATH. ALL PATIENT BELONGINGS AND PAPER WORKS GIVEN. PATIENT LEFT IN STABLE CONDITION.
[2018-01-11] MEDS ORDERED: POTASSIUM CHLORIDE 20% 40 MEQ/15 ML UDC GT SCH (09:00)
== END 2018-01-10 22:10 | disposition home or self-care (01) | DRG 871 ==
LOC: EDBD 16:28 → MED 16:28 → MIC 19:24 → MTU 01-09 07:21
PROVIDERS: ADMIT Preventive Medicine Preventive Medicine/Occupational Environmental Medicine; ATTEND Preventive Medicine Preventive Medicine/Occupational Environmental Medicine
DX: A41.9 Sepsis, unspecified organism (principal); J96.01 Acute respiratory failure with hypoxia; R65.21 Severe sepsis with septic shock; E43 Unspecified severe protein-calorie malnutrition; N17.9 Acute kidney failure, unspecified; K55.9 Vascular disorder of intestine, unspecified; A04.72 Enterocolitis due to Clostridium difficile, not specified as recurrent; E11.22 Type 2 diabetes mellitus with diabetic chronic kidney disease; K56.7 Ileus, unspecified; F84.2 Rett's syndrome; E87.0 Hyperosmolality and hypernatremia; K94.22 Gastrostomy infection; Z68.1 Body mass index [BMI] 19.9 or less, adult; L03.311 Cellulitis of abdominal wall; R04.2 Hemoptysis; E83.42 Hypomagnesemia; E83.52 Hypercalcemia; M41.9 Scoliosis, unspecified; R13.10 Dysphagia, unspecified; K21.9 Gastro-esophageal reflux disease without esophagitis; G80.9 Cerebral palsy, unspecified; E11.65 Type 2 diabetes mellitus with hyperglycemia; H91.90 Unspecified hearing loss, unspecified ear; F79 Unspecified intellectual disabilities; E83.39 Other disorders of phosphorus metabolism; E87.6 Hypokalemia; N18.9 Chronic kidney disease, unspecified; R74.0 Nonspecific elevation of levels of transaminase and lactic acid dehydrogenase [LDH]; G40.909 Epilepsy, unspecified, not intractable, without status epilepticus; K44.9 Diaphragmatic hernia without obstruction or gangrene; B96.20 Unspecified Escherichia coli [E. coli] as the cause of diseases classified elsewhere; D64.9 Anemia, unspecified; K63.89 Other specified diseases of intestine; E88.09 Other disorders of plasma-protein metabolism, not elsewhere classified; R62.50 Unspecified lack of expected normal physiological development in childhood
CPT/HCPCS: 36415; 36600; 51702; 71045; 74018; 76770; 80048; 80053; 81001; 82550; 82553; 82803; 82948; 83605; 83735; 83880; 84100; 84484; 85025; 85610; 85651; 85730; 86140; 87040; 87045; 87070; 87081; 87086; 87186; 93005; 96361; 96365; 99291; J1815; J2060; J2270; J2543; J3370; J3475; J3480; J3490; J7030; J7060; J7070; Q0092

== ENCOUNTER 2018-06-13 15:25 | Emergency (ER) | payer OTHER, MEDICAID ==
[~2018-06-13] VITALS: Ht 157.5 cm; Wt 43.1 kg
[2018-06-13 15:25] VITALS: BP 125/87
[~2018-06-13 15:25] MED LIST: ACET-1182 GT; ACET-9525 GT; BACTO TP; CHLO118S2 TP; LACT10CA PO; POTA40SO5 GT; VAN1I GT
[2018-06-13 16:43] VITALS: BP 140/88
== END 2018-06-13 16:42 | disposition home or self-care (01) ==
LOC: MED 15:25
DX: S92.512A Displaced fracture of proximal phalanx of left lesser toe(s), initial encounter for closed fracture (principal); K21.9 Gastro-esophageal reflux disease without esophagitis; F79 Unspecified intellectual disabilities; E11.9 Type 2 diabetes mellitus without complications; Z79.899 Other long term (current) drug therapy; X58.XXXA Exposure to other specified factors, initial encounter; Y93.89 Activity, other specified; Y92.89 Other specified places as the place of occurrence of the external cause; Y99.8 Other external cause status
CPT/HCPCS: 73660; 99284; Q0092

== ENCOUNTER 2018-12-24 14:08 | Emergency (ER) | payer OTHER, MEDICAID ==
[~2018-12-24] VITALS: Ht 142.2 cm; Wt 45.4 kg
[2018-12-24 14:27] VITALS: BP 127/87
--- NOTE | 2018-12-24 14:38 | NUR ---
PT TO ER BED 12
--- NOTE | 2018-12-24 14:40 | NUR ---
BIB PLASTER MACHINE TENDER FROM [facility] WITH C/O UNKNOWN PAIN, FLACC 10. ALERT & AWAKE. UNABLE TO VERBALIZED NEEDS. PT IS MOANING. NO SOB NOTED. DEPENDENT WITH MOBILITY. PT HAS G-TUBE AND G-J TUBE. HOB UP. ON LOW BED POSITION, LOCKED. BED SIDE RAILS UP X2. SEIZURE PADS PLACED. ER MADE AWARE OF PT STATUS.
[2018-12-24 17:15] VITALS: BP 120/82
--- NOTE | 2018-12-24 17:16 | NUR ---
Patient discharged with v/s stable. Written and verbal after care instructions given and explained. Patient alert, oriented and verbalized understanding of instructions. Wheel Chair Assisted with by caregiver. All questions addressed prior to discharge. ID band removed. Patient advised to follow up with PMD. Rx of aluminum/magnesium/simethicone given. Patient educated on indication of medication including possible reaction and side effects. Opportunity to ask questions provided and answered.
== END 2018-12-24 17:16 | disposition home or self-care (01) ==
LOC: MED 14:08
DX: K56.7 Ileus, unspecified (principal); E11.9 Type 2 diabetes mellitus without complications; K21.9 Gastro-esophageal reflux disease without esophagitis; F41.9 Anxiety disorder, unspecified; Z79.899 Other long term (current) drug therapy
CPT/HCPCS: 74018; 99283; Q0092